=== PATIENT | male | born 1965 ===

== ENCOUNTER 2017-06-16 16:09 | Emergency (ER) | payer OTHER ==
[2017-06-16 16:09] VITALS: PULSE 88; BMI 31.6
--- NOTE | 2017-06-16 16:49 | C.PDOC ---
History Of Present Illness 51 y/o M c PMHx HTN, HLD, Afib on warfarin p/w supratherapeutic INR. Patient states he was called from the clinic and instructed to come to the ED after finding an elevated INR on his routine INR check. Patient denies headache, vision change, bruising, bleeding, rash, hematuria, black or bloody stools. He has no symptoms. Time Seen by Provider: 06/16/17 16:18 Chief Complaint (Nursing): Abnormal Labs Past Medical History Vital Signs: Last Vital Signs Temp 98.1 F 06/16/17 16:13 Pulse 62 06/16/17 17:03 Resp 20 06/16/17 17:03 BP 127/92 H 06/16/17 17:03 Pulse Ox 96 06/16/17 17:03 - Medical History PMH: Atrial Fibrillation, CAD, Cardia Arrhythmia (AT. FIB), CHF, HTN, Hypercholesterolemia Denies: Colonic Polyps, Fractures, Chronic Kidney Disease Family History: States: No Known Family Hx - Social History Hx Tobacco Use: No Hx Alcohol Use: Yes Hx Substance Use: No - Immunization History Hx Tetanus Toxoid Vaccination: No Hx Influenza Vaccination: No Hx Pneumococcal Vaccination: No Review Of Systems Except As Marked, All Systems Reviewed And Found Negative. Eyes: Negative for: Vision Change Respiratory: Negative for: Shortness of Breath Physical Exam - Physical Exam Additional Physical Exam Comments: Constitutional: No acute distress. Head: Normocephalic. Atraumatic. Eyes: PERRL. EOMI. ENT: Moist mucous membranes. Neck: Supple. Cardiovascular: Regular rate. Radial pulses 2+ bilaterally. Chest: No tenderness. Respiratory: Clear to auscultation bilaterally. GI: Soft. Nontender. Nondistended. Back: No CVA tenderness. Musculoskeletal: No tenderness or swelling of extremities. Skin: No rash. Neurologic: Alert, no focal deficit. ED Course And Treatment O2 Sat by Pulse Oximetry: 98 Medical Decision Making Medical Decision Making: Discussed case with hospitalist Dr. Rhoades who states that patient is able to go to clinic without an appointment to have INR checked. Will have patient hold dose for 2 days, go to clinic Tuesday and redraw INR. Instructed to return to ED immediately for any headache, vision change, numbness, weakness, bleeding, rash , black stools. Disposition - Disposition Referrals: [facility] [Outside] Disposition: HOME/ ROUTINE Disposition Time: 17:30 Condition: STABLE Additional Instructions: Have your INR rechecked on Tuesday. Skip your next 2 doses. Instructions: Warfarin Toxicity (ED) Forms: [facility] [employer] (Khmer) - Clinical Impression Clinical Impression: Subtherapeutic international normalized ratio (INR)
[2017-06-16 17:04] VITALS: RESP 20
[2017-06-16 17:20] LABS: INR 6.5
[2017-06-16 17:43] VITALS: BP 126/88; PULSE 72; O2SAT 95
[2017-06-16 17:51] VITALS: TEMP 99.2
== END 2017-06-16 17:49 | disposition home or self-care (01) ==
LOC: C.ER 16:09
DX: R79.1 Abnormal coagulation profile (principal); I10 Essential (primary) hypertension; E78.00 Pure hypercholesterolemia, unspecified; I48.91 Unspecified atrial fibrillation; I50.9 Heart failure, unspecified; I25.10 Atherosclerotic heart disease of native coronary artery without angina pectoris; Z79.01 Long term (current) use of anticoagulants